=== PATIENT | female | born 1950 | race Caucasian/White ===

== ENCOUNTER → 2021-05-04 | Outpatient (CLI) | payer OTHER | LOC: M.CT 08:15 | PROVIDERS: ATTEND Internal Medicine Cardiovascular Disease | DX: Z13.6 Encounter for screening for cardiovascular disorders (principal) ==

== ENCOUNTER → 2021-06-11 | Outpatient (CLI) | payer OTHER | LOC: M.MRI 08:09 | PROVIDERS: ATTEND Internal Medicine | DX: I67.82 Cerebral ischemia (principal) ==

== ENCOUNTER → 2021-07-14 | Outpatient (CLI) | payer OTHER ==
[~2021-07-14] VITALS: Ht 170.2 cm; Wt 65.8 kg
[2021-07-14 10:13] VITALS: BP 140/61
[2021-07-14 10:23] LABS: URINE BILIRUBIN NEGATIVE (Negative); URINE BLOOD TRACE (Negative); URINE CLARITY CLEAR; URINE COLOR YELLOW; URINE GLUCOSE-RANDOM NEGATIVE (Negative); URINE KETONES NEGATIVE (Negative); URINE LEUKOCYTES-REFLEX NEGATIVE (Negative); URINE NITRITE-REFLEX NEGATIVE (Negative); URINE PROTEIN NEGATIVE (Negative); URINE SPECIFIC GRAVITY >= 1.030 (1.005-1.030); URINE UROBILINOGEN 0.2 E.U./dl (0.2-1.0)
[2021-07-14 10:25] LABS: HEMOGLOBIN 14.5 gm/dL (12.0-15.0); MCH 30.6 pg (26.0-34.0); MCHC 32.9 g/dL (28.0-37.0); MPV 7.7 fl. (7.2-11.1); RBC 4.73 mil/uL (4.20-5.00); RDW-CV 13.3 % (10.5-14.5); WBC 5.9 thou/uL (4.0-11.0)
[2021-07-14 10:33] LABS: CALCIUM 9.1 mg/dL (8.5-10.1); CREATININE 1.1 mg/dL (0.6-1.3); POTASSIUM 4.6 mmol/L (3.5-5.1)
[2021-07-14 13:21] VITALS: BP 133/46
[2021-07-14 13:38] VITALS: BP 127/58
--- NOTE | 2021-07-14 13:51 | CARD ---
[address] [address] CARDIAC CATH REPORT Name: ROGER MELTON Room: [facility] TARIK Guzmán.Davon.#: [id number] Admission: 07/14/21 Attend Phys: Parker Uriostegui MD, F Discharge: Date of : 50 Report #: [id number] THIS REPORT FOR: cc: Amanda Hare MD, Lin W. MD Blick, David R. MD [facility] ~ APPROVED REPORT Study performed: 07/14/2021 11:04:16 Patient Status: Out-Patient Room #: Event Personnel: Parker Uriostegui Network Support Technician, Teresita Davies RN RN, Avery Conley RTR Scrub, Layla Gipson RTR Monitor, Reji Cruz RN RN Exam: Insertion of Dual Chamber Permanent Pacemaker Indications: 2nd Degree AV block, Mobitz II The patient is a 71 year-old female with a history of Syncope. Conscious Sedation Start time: 11:38 End Time: 13:06 Fentanyl 100 mcg Versed 2 mg Implanted Devices: Edora 8 DR-T Biotronik generator; Solia S-53 Atrial Lead; Solia S-60 Ventricular lead Procedure The patient underwent informed consent. We discussed the details of the procedure including the risks, which include, but not limited to bleeding, infection, vascular damage, cardiac perforation, and pneumothorax. She understood these risks and was willing to proceed. As such, she was brought to the EP/Cardiac Catheterization laboratory in a fasting and sedated state and prepped and draped in a sterile fashion, received IV antibiotics prior to initiation of the procedure and a venogram was performed showing patency of the left axillary vein. The patient underwent conscious sedation, with no related complications. The patient was brought to the EP/Cardiac Catheterization laboratory and the left chest and shoulder were prepped and draped in a sterile manner. During this case, Fluoroscopy and visipaque 20cc [place] [address] CARDIAC CATH REPORT Name: ROGER MELTON [id number] Admission: 07/14/21 Attend Phys: Parker Uriostegui MD, F Discharge: Date of : 50 Report #: [id number] IV conscious sedation was used throughout procedure with appropriate monitoring and was performed in the presence of a registered nurse who was an independent trained observer other than the physician performing the procedure. The left subclavian region was infiltrated with 2% Lidocaine subcutaneous anesthesia. A transverse incision was made in the left upper chest cavity. The subcutaneous pocket was formed via blunt dissection. Percutaneous venous access was achieved and an introducer sheath was inserted into the left Subclavian vein. Sheaths were positions using the modified Seldinger technique Through the introducer sheaths the atrial and ventricular lead wires were positioned in the right atrial appendage and right ventricular apex respectively. Utilizing fluoroscopic guidance, the atrial and ventricular lead wires were advanced over the wires and positioned in the right atria and right ventricle respectively. Capturing and sensing thresholds were verified. Electrode Parameters P Wave: 5.2 mv R Wave: 13 mv Atrial Threshold: 0.7 v @ 0.4 ms Ventricular Threshold: 0.6 V @ 0.4 ms Atrial Resistance: 525 ohm Ventricular Resistance: 840 ohm Dual Chamber The atrial and ventricular leads were then secured using 0 silk sutures. The subcutaneous pocket was irrigated with ancef antibiotic solution.The atrial and ventricular leads were attached to the appropriate receptacles on the pulse generator and set screws firmly tightened to insure adequate contact and stability. The lead and pulse generator were placed into the subcutaneous pocket. Sharp and sponge counts were confirmed to be correct. At this time the pocket was closed subcutaneously with a 0 Vicryl and the skin was closed with a 4.0 Vicryl. The operative site was dressed in sterile fashion with skin affix and the patient was transferred to the floor in stable condition. Complications The patient tolerated the procedure well and there were no complications associated with the procedure. Findings Specimens Removed: N/[place] [address] CARDIAC CATH REPORT Name: ROGER MELTON Room: [facility] KrystinaEduar#: [id number] Admission: 07/14/21 Attend Phys: Parker Uriostegui MD, F Discharge: Date of : 50 Report #: [id number] Estimated Blood Loss: <5ml Conclusion successful placement of a dual chamber MRI compatible Biotronic pacemaker and leads. <ELECTRONICALLY SIGNED> By: Parker Uriostegui MD, FACC 07/14/21 1351 1351 1351Dalicia Uriostegui MD, FACC /INF
[2021-07-14 13:53] VITALS: BP 98/78
[2021-07-14 14:08] VITALS: BP 115/53
--- NOTE | 2021-07-14 14:18 | EKG ---
[place] [address] ELECTROCARDIOGRAM REPORT Name: ROGER MELTON Room: [facility]#: [id number] Admission: 07/14/21 Attend Phys: Parker Uriostegui MD Discharge: Date of : 50 Date of Service: 07/14/21 1020 Report #: [id number] THIS REPORT FOR: //name// [facility] Test Date: 2021-07-14 Test Time: 10:20:21 Pat Name: ROGER MELTON Department: Room: Gender: F Coding Quality Coordinator: : 1950 Requested By: Parker Uriostegui Order Number: [id number] Salome MD: Parker Uriostegui Measurements Intervals [place] Rate: 40 P: 72 UT: 371 QRS: -48 QRSD: 149 T: 48 QT: 539 QTc: 440 Interpretive Statements Sinus rhythm with 2:1 AV block 2nd degree AV block, Mobitz type II RBBB and LAFB Left ventricular hypertrophy No previous ECG available for comparison Electronically Signed On 07-14-2021 14:18:17 CDT by Parker Uriostegui [email or web address] <ELECTRONICALLY SIGNED> By: Parker Uriostegui MD, [facility] 07/14/21 1418 1020 1020 Parker Uriostegui MD, [facility] /EPI
--- NOTE | 2021-07-14 14:19 | EKG ---
[place] [address] ELECTROCARDIOGRAM REPORT Name: ROGER MELTON Room: [facility]#: [id number] Admission: 07/14/21 Attend Phys: Parker Uriostegui MD Discharge: Date of : 50 Date of Service: 07/14/21 1400 Report #: [id number] THIS REPORT FOR: //name// [facility] Test Date: 2021-07-14 Test Time: 14:00:36 Pat Name: ROGER MELTON Department: Room: Gender: Conformal Pad Former: : 1950 Requested By: Parker Uriostegui Order Number: [id number] Reading MD: Parker Uriostegui Measurements Intervals [place] Rate: 70 P: 75 DE: 197 QRS: -74 QRSD: 135 T: 87 QT: 465 QTc: 502 Interpretive Statements Atrial-sensed ventricular-paced complexes No further analysis attempted due to paced rhythm Compared to ECG 07/14/2021 10:20:21 paced beats now noted Electronically Signed On 07-14-2021 14:19:22 CDT by Parker Uriostegui [email or web address] <ELECTRONICALLY SIGNED> By: Parker Uriostegui MD, FACC 07/14/21 1419 1400 1400 Parker Uriostegui MD, FAC /EPI
--- NOTE | 2021-07-14 14:20 | EKG ---
[place] [address] ELECTROCARDIOGRAM REPORT Name: ROGER MELTON Room: [facility]#: [id number] Admission: 07/14/21 Attend Phys: Parker Uriostegui MD Discharge: Date of : 50 Date of Service: 07/14/21 1403 Report #: [id number] THIS REPORT FOR: //name// [facility] Test Date: 2021-07-14 Test Time: 14:03:09 Pat Name: ROGER MELTON Department: Room: Gender: Manager Architectural: : 1950 Requested By: Parker Uriostegui Order Number: [id number] Reading MD: Parker Uriostegui Measurements Intervals [place] Rate: 72 P: 71 [place]: 186 QRS: -75 QRSD: 148 T: 91 QT: 468 QTc: 513 Interpretive Statements Atrial and ventricular-paced complexes No further analysis attempted due to paced rhythm Baseline wander in lead(s) II,aVF Compared to ECG 07/14/2021 14:00:36 atrial paced beats now noted Electronically Signed On 07-14-2021 14:20:06 CDT by Parker Uriostegui [email or web address] <ELECTRONICALLY SIGNED> By: Parker Uriostegui MD, [facility] 07/14/21 1420 140 1403 Parker Uriostegui MD, [facility] /EPI
--- NOTE | 2021-07-14 15:03 | H ---
[place] [address] HISTORY AND PHYSICAL Name: ROGER MELTON Room: [facility] TARIK Lizzette.#: [id number] Admission: 07/14/21 Attend Phys: Parker Uriostegui MD, F Discharge: Date of : 50 Report #: [id number] THIS REPORT FOR: cc: Amanda Hare MD, Lin W. MD Blick,Parker Quarles MD [facility] ~ DATE OF SERVICE: 07/14/2021 HISTORY OF PRESENT ILLNESS: The patient is a 71-year-old white female who I was asked to see in the preoperative area at [facility] today prior to undergoing pacemaker insertion. The patient has no previous history of heart disease. She stays very active. She apparently had a syncopal spell 15 years ago and was evaluated by seed cleaner with a teletypesetter monitor and stress test that showed no evidence of heart disease. She has done well since that time. However, the past several months when she exerts herself, she became short of breath. Denies any fever, cough, edema. She denies any chest pain. She also notes occasional lightheadedness if she has to sit down. She actually had 2 syncopal spells in May at home and fell to the ground. There was no seizure activity. I saw her in Cardiology Clinic in April and the patient was not orthostatic. I have recommended an echocardiogram that apparently showed normal left ventricular function. She underwent vascular screening, apparently showed no significant carotid stenosis. She underwent coronary artery calcium scoring that showed minimal coronary artery calcified plaque. She wore a teletypesetter monitor. On the monitor, the patient was having episodes of 2:1 AV block, consistent with second-degree AV block, Mobitz type 2. The patient was called with the results, but apparently she and her had driven to [place] and were inspecting a vacation home they were building there. It was recommended the patient return to [place] for pacemaker insertion. The patient on one episode had a heart rate in the 30s and went to the Emergency Room in [place]. She decided to leave [place]. The patient finally returned to [place] and came to the hospital today for pacemaker insertion. PAST MEDICAL HISTORY: Significant for back surgery, knee arthroscopy, toe fusion, tonsillectomy. No history of hypertension, diabetes, hyperlipidemia. CURRENT MEDICATIONS: She is on no medication. ALLERGIES: She has no known drug allergies. FAMILY HISTORY: Her father had coronary stents. SOCIAL HISTORY: She is . She and her moved from [place] to [place] recently, they are both retired. No smoking or alcohol history. REVIEW OF SYSTEMS: The patient has no history of stroke, asthma, tick bite, heart murmur, liver disease, kidney disease. [place] [address] HISTORY AND PHYSICAL Name: ROGER MELTON Room: [facility]#: [id number] Admission: 07/14/21 Attend Phys: Parker Uriostegui MD, F Discharge: Date of : 50 Report #: [id number] the past. No chronic skin condition. PHYSICAL EXAMINATION: GENERAL: Revealed an elderly female, appears in no distress. VITAL SIGNS: Blood pressure 110/80, pulse is 40 and regular. She is afebrile. HEENT: She was anicteric. Conjunctivae pink. Mucosa is moist. NECK: Veins not distended. No carotid bruits. NECK: Supple. CHEST: Clear to auscultation. HEART: Regular, bradycardia. No significant murmur. ABDOMEN: Soft. EXTREMITIES: Had no edema. Dorsalis pedis pulse 2+ bilaterally. SKIN: Cool and dry. NEUROLOGIC: Nonfocal. LABORATORY DATA: ECG shows 2:1 AV block, consistent with second-degree AV block, Mobitz type 2 with a left anterior fascicular block and a right bundle branch block. Lab work last October included BUN 20, creatinine 1. TSH 2.0. IMPRESSION AND RECOMMENDATIONS: 1. High-degree AV block. Recommend permanent pacemaker. 2. Syncope. Suspect secondary to heart block. <ELECTRONICALLY SIGNED> By: Parker Uriostegui MD, FACC 07/14/21 1503 0959 [id number] Uriostegui MD, FACC /nt
== END | disposition home or self-care (01) ==
LOC: M.CL 09:29
PROVIDERS: ATTEND Internal Medicine Cardiovascular Disease
DX: I44.1 Atrioventricular block, second degree (principal); R55 Syncope and collapse; Z98.890 Other specified postprocedural states; Z79.899 Other long term (current) drug therapy; Z20.822 Contact with and (suspected) exposure to COVID-19